=== PATIENT | female | born 1950 | race Caucasian/White ===

== ENCOUNTER 2020-11-29 11:53 | Outpatient (CLI) | payer MEDICARE, OTHER | END 2020-11-29 11:54 | disposition home or self-care (01) | LOC: CSHMAMMO 11:53 | DX: Z12.31 Encounter for screening mammogram for malignant neoplasm of breast (principal) | CPT/HCPCS: 77063; 77067 ==

== ENCOUNTER 2024-03-21 09:00 | Outpatient (CLI) | payer MEDICARE, OTHER | END 2024-03-21 09:01 | disposition home or self-care (01) | LOC: CSHMAMMO 09:00 | PROVIDERS: ATTEND Family Medicine | DX: Z12.31 Encounter for screening mammogram for malignant neoplasm of breast (principal) | CPT/HCPCS: 77063; 77067 ==